=== PATIENT | female | born 1960 | race Caucasian/White ===

== ENCOUNTER 2020-09-26 18:35 | Emergency (ER) | payer OTHER ==
[~2020-09-26] VITALS: Ht 170.2 cm; Wt 68.0 kg
[~2020-09-26 18:35] MED LIST: ACET-8386 PO; LORA-476 PO; TRAZ-471 PO; VENL75TA17 PO
[2020-09-26 18:45] VITALS: BP 148/66
--- NOTE | 2020-09-26 18:45 | NUR ---
BIBA TAKEN TO BED #10
[2020-09-26] MEDS ORDERED: chlordiazePOXIDE 25 MG CAP PO SCH (19:10)
--- NOTE | 2020-09-26 19:15 | NUR ---
REPORT RECEIVED FROM SAMMIE FAJARDO FOR CONTINUITY OF CARE.
--- NOTE | 2020-09-26 20:04 | NUR ---
Dr. Muñoz examining patient.
[2020-09-26] MEDS ORDERED: LIB25 PO (20:08)
[2020-09-26 20:32] VITALS: BP 148/66
--- NOTE | 2020-09-26 20:32 | NUR ---
Patient discharged with v/s stable. Written and verbal after care instructions given and explained. Patient alert, oriented and verbalized understanding of instructions. Ambulatory with steady gait. All questions addressed prior to discharge. ID band removed. Patient advised to follow up with PMD. Rx of LIBRIUM given. Patient educated on indication of medication including possible reaction and side effects. Opportunity to ask questions provided and answered. CONFIRMED PT TO WAIT IN LOBBY FOR TO DRIVE HOME.
== END 2020-09-26 20:32 | disposition home or self-care (01) ==
LOC: MED 18:35
DX: F10.239 Alcohol dependence with withdrawal, unspecified (principal); F41.9 Anxiety disorder, unspecified; E11.9 Type 2 diabetes mellitus without complications; I10 Essential (primary) hypertension; Z88.2 Allergy status to sulfonamides
CPT/HCPCS: 71045; 99283

== ENCOUNTER 2021-06-01 09:20 | Emergency (ER) | payer OTHER ==
[~2021-06-01] VITALS: Ht 162.6 cm; Wt 52.2 kg
[~2021-06-01 09:20] MED LIST changes: +LIB25 PO
--- NOTE | 2021-06-01 09:23 | NUR ---
PT CAESAR FROM HOME TAKEN TO ER BED 9.
[2021-06-01 09:25] VITALS: BP 113/74
[2021-06-01] MEDS ORDERED: NACL 0.9% 1,000 ML IV ONE (09:40)
[2021-06-01] MEDS ORDERED: ONDANSETRON 4 MG/2 ML VIAL IVP ONE (09:40)
--- NOTE | 2021-06-01 09:40 | NUR ---
UNABLE TO DO COMPLETE EXAM DUE TO PT REFUSING ALL NURSING CARE
--- NOTE | 2021-06-01 09:45 | NUR ---
PT REFUSING ALL CARE WANTS TO LEAVE CADEN HAYDEN MD MADE AWARE
--- NOTE | 2021-06-01 09:58 | NUR ---
PT IS REFUSING TREATMENT CURRENTLY
--- NOTE | 2021-06-01 10:04 | NUR ---
FLOOR COVERING INSTALLER AT PT BEDSIDE, PT REFUSING XR. MADE AWARE AT THIS TIME.
[2021-06-01 10:19] VITALS: BP 113/74
--- NOTE | 2021-06-01 10:20 | NUR ---
Patient does not wish to proceed with medical care recommended by DR. JOY. Patient given information related to possible complications, up to and including , which could occur as a result of leaving hospital at this time. Patient verbalizes understanding of risks involved leaving against medical advice. Patient has signed AMA form.
== END 2021-06-01 10:20 | disposition left against medical advice (07) ==
LOC: MED 09:20
DX: R53.1 Weakness (principal); R11.2 Nausea with vomiting, unspecified; E11.9 Type 2 diabetes mellitus without complications; I10 Essential (primary) hypertension; F17.200 Nicotine dependence, unspecified, uncomplicated; J44.9 Chronic obstructive pulmonary disease, unspecified; Z90.710 Acquired absence of both cervix and uterus; Z79.899 Other long term (current) drug therapy; Z88.2 Allergy status to sulfonamides
CPT/HCPCS: 99283; J2405